=== PATIENT | male | born 1995 | race Caucasian/White ===

== ENCOUNTER 2017-01-14 21:30 | Emergency (ER) | payer BC, OTHER ==
[2017-01-14 21:38] VITALS: TEMP 97
[2017-01-14] MEDS ORDERED: MORPHINE SULFATE 4 MG/ML SYRINGE IV STA (21:41)
[2017-01-14] MEDS ORDERED: SODIUM CHLORIDE 0.9% 500 ML IV STA (21:41)
[2017-01-14] MEDS ORDERED: ETOMIDATE 2 MG/ML 10 ML VIAL IVP STA (22:18)
--- NOTE | 2017-01-14 22:31 | XR ---
EXAM: XR Right Elbow Complete, 3 or More Views CLINICAL HISTORY: Reason: Pain TECHNIQUE: Frontal, lateral and oblique views of the right elbow. COMPARISON: No relevant prior studies available. FINDINGS: Bones/joints: Posterior elbow dislocation. No evidence of acute fracture. Soft tissues: Unremarkable. IMPRESSION: Posterior elbow dislocation. No evidence of acute fracture.
--- NOTE | 2017-01-14 22:40 | CT ---
EXAM: CT Head Without Intravenous Contrast CLINICAL HISTORY: Reason: trauma TECHNIQUE: Axial computed tomography images of the head/brain without intravenous contrast. CTDI is 57.40 mGy and DLP is 940.20 mGy-cm. This CT exam was performed using one or more of the following dose reduction techniques: automated exposure control, adjustment of the mA and/or kV according to patient size, and/or use of iterative reconstruction technique. COMPARISON: No relevant prior studies available. FINDINGS: Brain: Unremarkable. No acute hemorrhage. Normal jacques-white differentiation. No significant mass effect. Ventricles: Unremarkable. No ventriculomegaly. Bones/joints: Unremarkable. No acute fracture. Soft tissues: Unremarkable. Sinuses: Unremarkable as visualized. No acute sinusitis. Mastoid air cells: Unremarkable. IMPRESSION: No acute intracranial hemorrhage or calvarial fracture.
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
[2017-01-14 22:48] VITALS: RESP 18
--- NOTE | 2017-01-14 23:09 | XR ---
EXAM: XR Right Elbow Complete, 3 or More Views CLINICAL HISTORY: Reason: Pain TECHNIQUE: Frontal, lateral and oblique views of the right elbow. COMPARISON: 01/14/2017 2158 FINDINGS: Bones/joints: Status post successful reduction of posterior elbow dislocation. No acute fracture. Soft tissues: Unremarkable. IMPRESSION: Status post successful reduction of posterior elbow dislocation. No acute fracture.
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
[2017-01-15 00:57] VITALS: PULSE 66
[2017-01-15 00:58] VITALS: BP 112/57
--- NOTE | 2017-01-30 00:50 | CDI ---
Documentation Clarification OP Dear [employer] Smart MD: Please do addendum to ED Report that describes the time/duration of moderate sedation given. Thank You. Noah Felipe Chief Engineer [employer]
== END 2017-01-15 00:59 | disposition home or self-care (01) ==
LOC: EC 21:30
DX: S53.124A Posterior dislocation of right ulnohumeral joint, initial encounter (principal); S05.11XA Contusion of eyeball and orbital tissues, right eye, initial encounter; S00.83XA Contusion of other part of head, initial encounter; R45.1 Restlessness and agitation; F17.200 Nicotine dependence, unspecified, uncomplicated; Y04.0XXA Assault by unarmed brawl or fight, initial encounter; W19.XXXA Unspecified fall, initial encounter; Y92.009 Unspecified place in unspecified non-institutional (private) residence as the place of occurrence of the external cause
CPT/HCPCS: 99284 ×2; 96374 ×2; 99152 ×2; 73070; 70486; 70450; J2270

== ENCOUNTER 2020-10-23 22:03 | Emergency (ER) | payer OTHER ==
[2020-10-23 22:07] VITALS: RESP 18
--- NOTE | 2020-10-23 22:32 | ED ---
URI HPI - General Chief Complaint: Upper Respiratory Infection Stated Complaint: Headache, taste changes Time Seen by Provider: 10/23/20 22:10 Source: patient Limitations: no limitations - History of Present Illness Initial Comments: 24-year-old male presents to emergency Department with chief complaint of upper respiratory infection. Patient reports over the last several days he developed clear bilateral rhinorrhea or sore throat and a productive cough with yellow sputum production. Patient states he is a smoker of cigarettes and marijuana. He also reports chills but denies any fevers. Denies any nausea vomiting diarrhea. He does report a headache but states that is due to not drinking any fluids. Patient is also requesting Covid testing. Denies taking medication to the symptoms. - Related Data Previous Rx's Medication Instructions Recorded Ondansetron Odt [Zofran Odt] 4 mg PO Q8HR PRN #10 tab 07/30/17 Guaifenesin/Dextromethorphan 1 each PO BID #30 tab 10/23/20 [Mucinex Dm ER 1,200-60 mg Tab] Allergies Allergy/AdvReac Type Severity Reaction Status Date / Time No Known Allergies Allergy Verified 10/23/20 22:07 Review of Systems ROS Statement: Those systems with pertinent positive or pertinent negative responses have been documented in the HPI. ROS Other: All systems not noted in ROS Statement are negative. Past Medical History Past Medical History: No Reported History History of Any Multi-Drug Resistant Organisms: None Reported Past Surgical History: No Surgical Hx Reported Past Psychological History: ADD/ADHD Smoking Status: Current every day smoker Past Alcohol Use History: Daily Past Drug Use History: Marijuana, Methamphetamine General Exam Limitations: no limitations General appearance: alert, in no apparent distress Head exam: Present: atraumatic, normocephalic, normal inspection Eye exam: Present: normal appearance, PERRL, EOMI Pupils: Present: normal accommodation ENT exam: Present: normal exam, normal oropharynx (ENT examination unremarkable), mucous membranes moist Neck exam: Present: normal inspection, tenderness, full ROM Respiratory exam: Present: normal lung sounds bilaterally. Absent: respiratory distress, wheezes, rales, rhonchi, stridor, chest wall tenderness, accessory muscle use Cardiovascular Exam: Present: regular rate, normal rhythm, normal heart sounds Extremities exam: Present: normal inspection, full ROM, normal capillary refill. Absent: tenderness Back exam: Present: normal inspection, full ROM. Absent: tenderness, CVA tenderness (R), CVA tenderness (L) Neurological exam: Present: alert, oriented X3 Psychiatric exam: Present: normal affect, normal mood Skin exam: Present: warm, dry, intact, normal color Course Vital Signs 10/23/20 22:04 Temperature 97.5 F L Pulse Rate 74 Respiratory 18 Rate Blood Pressure 119/68 O2 Sat by Pulse 98 Oximetry Medical Decision Making - Medical Decision Making 24-year-old male presents emergency Department with chief complaint upper respiratory infection. On physical examination, patient does not appear to be in any respiratory distress. Lungs are clear to auscultation. No chest pain or shortness of breath. Vital signs within normal limits. Chest x-ray is unremarkable. Rapid Covid antigen test negative. Patient will be discharged with Mucinex DM. Advised to follow with her primary care physician. Advised to return to emergency department if symptoms worsen. Case discussed with . - Lab Data Lab Results 10/23/20 Range/Units 22:28 Coronavirus (PCR) Not Detected (Not Detectd) Disposition Clinical Impression: Acute upper respiratory infection Disposition: HOME SELF-CARE Condition: Stable Instructions (If sedation given, give patient instructions): Upper Respiratory Infection (ED) Additional Instructions: Take prescribed medication as directed. Follow with primary care physician. Return to emergency department if symptoms worsen. Prescriptions: Guaifenesin/Dextromethorphan [Mucinex Dm ER 1,200-60 mg Tab] 1 each PO BID #30 tab Is patient prescribed a controlled substance at d/c from ED?: No Referrals: None,Stated [Primary Care Provider] - 1-2 days Time of Disposition: 22:52
--- NOTE | 2020-10-23 23:21 | XR ---
EXAMINATION TYPE: XR chest 2V DATE OF EXAM: 10/23/2020 COMPARISON: 09/29/2015 HISTORY: Chest pain TECHNIQUE: 2 views FINDINGS: Heart and mediastinum are normal. Lungs are clear. Diaphragm is normal. Bony thorax appears normal. IMPRESSION: Normal chest. No change.
[2020-10-23 23:26] VITALS: BP 119/80; PULSE 89; TEMP 98.1
== END 2020-10-23 23:26 | disposition home or self-care (01) ==
LOC: EC 22:03
DX: J06.9 Acute upper respiratory infection, unspecified (principal); F17.210 Nicotine dependence, cigarettes, uncomplicated; F90.9 Attention-deficit hyperactivity disorder, unspecified type; F12.90 Cannabis use, unspecified, uncomplicated; F15.90 Other stimulant use, unspecified, uncomplicated; Z20.822 Contact with and (suspected) exposure to COVID-19
CPT/HCPCS: 71046; 87635; 99283